=== PATIENT | female | born 1960 | race Hispanic/Latino ===

== ENCOUNTER 2018-11-11 13:57 | Inpatient (IN) | payer MEDICAID ==
[~2018-11-11] VITALS: Ht 157.5 cm; Wt 58.8 kg
[2018-11-11] VITALS (8 sets, daily range): BP systolic 103–135; BP diastolic 59–80
[2018-11-11 14:15] LABS: APPEARANCE,URINE Clear (CLEAR); BILIRUBIN,URINE Small (NEGATIVE); COLOR,URINE Dark Yellow (YELLOW); GLUCOSE, URINE (UA) Negative (NEGATIVE); KETONES,URINE Negative (NEGATIVE); LEUKOCYTE ESTERASE ,URINE Large (NEGATIVE); NITRATE,URINE Negative (NEGATIVE); OCCULT BLOOD,URINE Small (NEGATIVE); PH,URINE 6.5 (5.0-8.0); PROTEIN,URINE >=1000 mg/dL (NEGATIVE)
[2018-11-11 14:23] LABS: AMPHET/METH SCREEN,URINE NEGATIVE (NEGATIVE); BACTERIA,URINE Many /HPF (None Seen); BARBITURATE SCREEN, URINE NEGATIVE (NEGATIVE); BENZODIAZEPINES SCREEN,URINE NEGATIVE (NEGATIVE); CANNABINOID SCREEN,URINE NEGATIVE (NEGATIVE); COCAINE SCREEN,URINE NEGATIVE (NEGATIVE); OPIATE SCREEN,URINE POSITIVE (NEGATIVE); PHENCYCLIDINE SCREEN,URINE NEGATIVE (NEGATIVE)
[2018-11-11 14:25] LABS: WBC,URINE 26-50 /HPF (0-1)
[2018-11-11 14:43] LABS: BASOPHILS % (AUTO) 0.8 % (0.0-5.0); EOSINOPHILS % (AUTO) 0.9 % (0.0-8.0); HEMATOCRIT 27.6 % (36-48); LYMPHOCYTES % (AUTO) 6.2 % (21.0-51.0); MEAN CORPUSCULAR HEMOGLOBIN 29.1 pg (27.0-33.0); MEAN CORPUSCULAR HGB CONC 34.1 g/dL (32.0-36.0); MEAN CORPUSCULAR VOLUME 85.3 fL (79-99); MONOCYTES % (AUTO) 2.4 % (3.0-13.0); NEUTROPHILS % (AUTO) 89.7 % (40.0-77.0); NUCLEATED RED BLOOD CELLS 0.7 % (0.0-0.19); PLATELET COUNT (AUTO) 71 K/uL (130-400); RED BLOOD CELL COUNT(AUTO) 3.24 MIL/uL (4.00-5.50); RED CELL DISTRIBUTION WIDTH 16.4 % (11.0-15.5); WHITE BLOOD COUNT (AUTO) 18.3 K/uL (4.8-10.8)
[2018-11-11 14:57] LABS: ALBUMIN 3.1 g/dL (3.5-5.0); CREATININE 2.8 mg/dL (0.5-1.5); POTASSIUM 4.7 mmol/L (3.5-5.1); TOTAL PROTEIN, SERUM 7.2 g/dL (6.0-8.3)
[2018-11-11] MEDS ORDERED: NALOXONE HCL 0.4 MG/1 ML ML ONE ×2 (15:05→15:50)
[2018-11-11] MEDS ORDERED: CEFTRIAXONE SODIUM 1 GM ONE (15:14)
[2018-11-11 15:41] LABS: ABG BASE EXCESS -9.7 mmol/L (-2.0-3.0); ABG HCO3 16.5 mmol/L (21.0-28.0); ABG OXYGEN SATURATION 84.5 % (95.0-99.0); ABG PCO2 37 mmHg (32-45)
[2018-11-11] MEDS ORDERED: LACTULOSE 20 GM/30 ML UDCUP ONE (15:56)
[2018-11-11] MEDS ORDERED: NALOXONE HCL IVP SCH (18:45)
[2018-11-11] MEDS ORDERED: SODIUM CHLORIDE 0.9% IVP SCH (18:45)
[2018-11-11] MEDS ORDERED: ONDANSETRON HCL 4 MG/2 ML VIAL IVP PRN (19:30)
[2018-11-11] MEDS: SODIUM CHLORIDE 0.9% 1000ML 1,000 ML IV SCH (19:56)
[2018-11-11] MEDS ORDERED: CEFTRIAXONE SODIUM 1 GM IVP SCH (20:57)
[2018-11-11] MEDS: INSULIN HUMULIN R 100 UNIT/ML 3ML SQ SCH (21:00)
[2018-11-11] MEDS ORDERED: ONDA4TAB4 PO (21:19)
[2018-11-11] MEDS ORDERED: EVER5TAB PO (21:19)
[2018-11-11] MEDS ORDERED: GABA-529 PO (21:19)
[2018-11-11] MEDS ORDERED: LOSA50TA64 PO (21:19)
[2018-11-11] MEDS ORDERED: FERR325T29 PO (21:19)
[2018-11-11] MEDS ORDERED: ATOR40TA71 PO (21:19)
[2018-11-11] MEDS ORDERED: FOLI1TAB85 PO (21:19)
[2018-11-11] MEDS ORDERED: FENT1PAT26 TD (21:19)
[2018-11-11] MEDS ORDERED: SOLI5 PO (21:19)
[2018-11-11] MEDS ORDERED: HYDR-4068 PO (21:19)
[2018-11-11] MEDS ORDERED: BISA5TAB12 PO (21:19)
[2018-11-11] MEDS ORDERED: LENV4CAP PO (21:19)
[2018-11-11] MEDS: LACTULOSE 20 GM/30 ML UDCUP PO SCH (21:45)
[2018-11-12] VITALS (16 sets, daily range): BP systolic 89–155; BP diastolic 56–91
[2018-11-12 03:53] LABS: MEAN CORPUSCULAR HEMOGLOBIN 28.6 pg (27.0-33.0); MEAN CORPUSCULAR HGB CONC 34.3 g/dL (32.0-36.0); MEAN CORPUSCULAR VOLUME 83.2 fL (79-99); NUCLEATED RED BLOOD CELLS 0.2 % (0.0-0.19); PLATELET COUNT (AUTO) 66 K/uL (130-400); RED BLOOD CELL COUNT(AUTO) 2.77 MIL/uL (4.00-5.50); RED CELL DISTRIBUTION WIDTH 16.7 % (11.0-15.5); WHITE BLOOD COUNT (AUTO) 6.7 K/uL (4.8-10.8)
[2018-11-12 04:12] LABS: ALBUMIN 2.4 g/dL (3.5-5.0); BILIRUBIN,TOTAL 0.7 mg/dL (0.2-1.0); CREATININE 2.3 mg/dL (0.5-1.5); POTASSIUM 4.6 mmol/L (3.5-5.1); THYROID STIMULATING HORMONE 4.3 uIU/mL (0.36-3.74); TOTAL PROTEIN, SERUM 5.7 g/dL (6.0-8.3); URIC ACID 7.2 mg/dL (2.6-7.2)
[2018-11-12 04:37] LABS: % IRON SATURATION 19.6 % (22-44)
[2018-11-12] MEDS: SODIUM CHLORIDE 0.9% 1000ML 1,000 ML IV SCH ×2 (05:48→14:37)
[2018-11-12] MEDS: INSULIN HUMULIN R 100 UNIT/ML 3ML SQ SCH ×4 (06:54→21:00)
[2018-11-12] MEDS: PANTOPRAZOLE 40 MG/VIAL IVP SCH (09:58)
[2018-11-12] MEDS: LACTULOSE 20 GM/30 ML UDCUP PO SCH ×2 (09:58→13:00)
--- NOTE | 2018-11-12 12:47 | NUR ---
PT IN NO ACUTE DISTRESS- NO SIGNS OF RESPIRATORY DEPRESSION. AIRWAY PATENT AND ON ROOM AIR. COMFORTABLE AT PRESENT TIME. PENDING MD ROUNDS
[2018-11-12] MEDS: CEFTRIAXONE SODIUM 1 GM IVP SCH (14:36)
[2018-11-12] MEDS ORDERED: PHARMACY COMMUNICATION MISC SCH (15:15)
--- NOTE | 2018-11-12 15:15 | NUR ---
DR SANTACRUZ MADE ROUNDS- INFORMED OF LOOSE BMS X3 WITH LACTULOSE AND HE CHANGED DOSE AND GAVE PARAMETERS. WILL BE DOWNGRADED TO MEDICAL FLOOR
[2018-11-12] MEDS: SODIUM CHLORIDE 0.9% 10 ML VIAL IV SCH (15:57)
--- NOTE | 2018-11-12 16:38 | NUR ---
RD Notification Patient with poor PO intake at 25%. Patient also states poor appetite and ate less than half of lunch. Patient states she has been staying hydrated with empty cups visible at bedside. RD recommend nutritional shake at mealtimes, at which patient agreed. Patient reports no GI distress at this time. Patient LBM 11/12/18. Patient monitored labs: Na 127, Cl 95, CO2 19, BUN 39, Cr 2.3, GFR 23, Ca 8.4, Alb 2.4, Glu 127. RD to continue to monitor. Please notify RD as nutritional concerns arise. Thank you. Addendum: 11/12/18 at [address] Amended: Links added.
--- NOTE | 2018-11-12 17:20 | NUR ---
HAND OFF REPORT CALLED TO [facility] 3RD FLOOR. PT TRANSFERRED TO ROOM 302. DAUGHTER NOTIFIED
--- NOTE | 2018-11-12 17:30 | NUR ---
TRANSFER Received patient from second floor in no distress. Port-A-Cath to right chest. Intact-looking. Patient A&O X 3. On bedrest. No needs at the time.
[2018-11-13] MEDS: SODIUM CHLORIDE 0.9% 10 ML VIAL IV SCH ×3 (01:21→15:17)
[2018-11-13 03:26] VITALS: BP 159/95
[2018-11-13 04:58] LABS: HEMATOCRIT 22.9 % (36-48); MEAN CORPUSCULAR HEMOGLOBIN 29.3 pg (27.0-33.0); MEAN CORPUSCULAR VOLUME 83.6 fL (79-99); NUCLEATED RED BLOOD CELLS 0.1 % (0.0-0.19); PLATELET COUNT (AUTO) 56 K/uL (130-400); RED BLOOD CELL COUNT(AUTO) 2.73 MIL/uL (4.00-5.50); RED CELL DISTRIBUTION WIDTH 17.2 % (11.0-15.5)
[2018-11-13 05:13] LABS: BAND NEUTROPHILS % (MANUAL) 8 % (0-2); LYMPHOCYTES % (MANUAL) 12 % (22-44); MAN.DIFF COMMENT-IMPRESSION MANUAL DIFFERENTIAL; MONOCYTES % (MANUAL) 12 % (2-9); PLATELET MORPHOLOGY COMMENT DECREASED; SEGMENTED NEUTROPHILS % 68 % (40-70)
[2018-11-13 05:16] LABS: ALBUMIN 2.3 g/dL (3.5-5.0); BILIRUBIN,TOTAL 0.6 mg/dL (0.2-1.0); CREATININE 1.6 mg/dL (0.5-1.5); POTASSIUM 3.8 mmol/L (3.5-5.1); TOTAL PROTEIN, SERUM 5.7 g/dL (6.0-8.3)
[2018-11-13] MEDS: INSULIN HUMULIN R 100 UNIT/ML 3ML SQ SCH ×4 (06:11→21:00)
[2018-11-13 08:00] VITALS: BP 138/84
[2018-11-13 08:51] LABS: APPEARANCE,URINE Clear (CLEAR); BILIRUBIN,URINE Negative (NEGATIVE); COLOR,URINE Yellow (YELLOW); GLUCOSE, URINE (UA) Negative (NEGATIVE); KETONES,URINE Negative (NEGATIVE); LEUKOCYTE ESTERASE ,URINE Small (NEGATIVE); NITRATE,URINE Negative (NEGATIVE); OCCULT BLOOD,URINE Moderate (NEGATIVE); PH,URINE 5.5 (5.0-8.0); PROTEIN,URINE POS 1+ mg/dL (NEGATIVE)
[2018-11-13] MEDS: LENVATINIB MESYLATE PO SCH (09:00)
[2018-11-13 09:04] LABS: RBC,URINE 0-1 /HPF (0-1)
[2018-11-13 09:05] LABS: BACTERIA,URINE Few /HPF (None Seen); COARSE GRANULAR CASTS,URINE 0-2 /LPF (None Seen)
[2018-11-13] MEDS: LACTULOSE 20 GM/30 ML UDCUP PO SCH ×2 (09:34→22:18)
[2018-11-13] MEDS: EVEROLIMUS 5 MG PO SCH (09:34)
[2018-11-13] MEDS: PANTOPRAZOLE 40 MG/VIAL IVP SCH (09:39)
[2018-11-13] MEDS: LENVATINIB PO SCH (09:39)
[2018-11-13 11:49] VITALS: BP_SYST 159; BP_SYST 162; BP_DIAS 90; BP_DIAS 97
[2018-11-13] MEDS: CEFTRIAXONE SODIUM 1 GM IVP SCH (15:17)
[2018-11-13 16:00] VITALS: BP_SYST 158; BP_SYST 163; BP_DIAS 100; BP_DIAS 104
--- NOTE | 2018-11-13 16:00 | NUR ---
CM SENT REFERRAL TO WEB DESIGNER DEVELOPER REQUESTED BY PT . ALSO ATTEMPTED TO CALL DAUGHTER REQUESTED BY PT, BUT UNABLE TO REACH HER. WILL DEFER TO CM IN AM Addendum: 11/13/18 at 1652 by SINGH SALGADO RN CM Amended: Links added.
--- NOTE | 2018-11-13 16:15 | NUR ---
CM INITIAL CM met w pt, alone, alert, states lives alone, daughter cornell to supply transport- cornell identified as daughter in law on face sheet -will update. pt uses a cane, no other dme, states has 9 year hx stage 4 renal cancer, now on po meds; uses opiates daily, had accidental overdose, reason for admission. discussed opiates and affect on pts outlook, increased possible depression, pt states daughter wants to talk to psychotherapist social worker to see what is available for her. Pt states that overdose was accidental but does not deny low mood or depression. Will enter SW consult. Addendum: 11/13/18 at 1622 by SINGH SALGADO RN CM Amended: Links added.
[2018-11-13] MEDS ORDERED: ACETAMINOPHEN 325 MG TAB PO PRN (17:30)
[2018-11-13] MEDS ORDERED: TRAMADOL HCL 50 MG TABLET PO PRN (17:30)
[2018-11-13 19:43] VITALS: BP 152/97
[2018-11-13 23:40] VITALS: BP 170/101
[2018-11-14] MEDS: SODIUM CHLORIDE 0.9% 10 ML VIAL IV SCH ×3 (00:05→14:48)
--- NOTE | 2018-11-14 00:07 | NUR ---
NN CALL PLACED TO DR Ita SANTACRUZ TO INFORM OF ELEVATED BP OF 170/101. PATIENT DENIES ANY PAIN OR DISCOMFORT AT PRESENT. NO PRN BP MED AND HOME BP MED HAS NOT BEEN RESUMED. NEW ORDER GIVEN FOR AMLODIPINE 5MG PO DAILY AND NOTED.
[2018-11-14] MEDS: AMLODIPINE BESYLATE 5 MG TAB PO SCH ×2 (01:46→09:00)
[2018-11-14 02:50] VITALS: BP 160/84
[2018-11-14 04:41] LABS: HEMATOCRIT 25.5 % (36-48); MEAN CORPUSCULAR HEMOGLOBIN 28.9 pg (27.0-33.0); MEAN CORPUSCULAR HGB CONC 34.7 g/dL (32.0-36.0); MEAN CORPUSCULAR VOLUME 83.2 fL (79-99); NUCLEATED RED BLOOD CELLS 0.1 % (0.0-0.19); PLATELET COUNT (AUTO) 59 K/uL (130-400); RED BLOOD CELL COUNT(AUTO) 3.06 MIL/uL (4.00-5.50); RED CELL DISTRIBUTION WIDTH 17.2 % (11.0-15.5); WHITE BLOOD COUNT (AUTO) 3.7 K/uL (4.8-10.8)
[2018-11-14 05:00] LABS: ALBUMIN 2.4 g/dL (3.5-5.0); BILIRUBIN,TOTAL 0.8 mg/dL (0.2-1.0); CREATININE 1.1 mg/dL (0.5-1.5); POTASSIUM 3.7 mmol/L (3.5-5.1); TOTAL PROTEIN, SERUM 6.2 g/dL (6.0-8.3)
[2018-11-14 07:00] VITALS: BP 143/98
[2018-11-14 07:27] LABS: HEPATITIS A ANTIBODY IGM Negative (Negative); HEPATITIS B CORE IGM Negative (Negative); HEPATITIS Bs ANTIGEN SCREEN P Negative (Negative)
[2018-11-14] MEDS: INSULIN HUMULIN R 100 UNIT/ML 3ML SQ SCH ×4 (07:30→20:20)
[2018-11-14] MEDS: EVEROLIMUS 5 MG PO SCH (08:57)
[2018-11-14] MEDS: LENVATINIB PO SCH (08:57)
[2018-11-14] MEDS: LENVATINIB MESYLATE PO SCH (08:58)
[2018-11-14] MEDS: LACTULOSE 20 GM/30 ML UDCUP PO SCH ×2 (09:00→20:37)
[2018-11-14] MEDS: PANTOPRAZOLE 40 MG/VIAL IVP SCH (09:00)
--- NOTE | 2018-11-14 09:00 | NUR ---
cm note received call from cornell kilgore daughter, provided her phone # during day [phone] if needed, states requests assistance with dme. walker, and bsc, per PT recommending front wheeled walker. pt in agreement. daughter also asked for adult briefs, informed would have to follwoup with her PCP at [facility] familiar for that. verbalize understanding. call made to dr shanks and in agreement for any equipment for pt. will sign form states to leave flagged int chart. referral made to to [facility] d[facility]. spoke to fadia and [facility] will start the process. Title Xix placed in chart for md signature. Addendum: 11/14/18 at 1852 by ERIBERTO KING CM dc plan per daughter cornell, states she has made arrangements for pt to go home with a relative that will be with her 11/02. at time of dc.
[2018-11-14 11:00] VITALS: BP 151/88
--- NOTE | 2018-11-14 13:43 | NUR ---
ACCIDENTAL OD Sw met with pt who states she did not ask to speak to me. Pt called her daughter Rani at work and Sw spoke to her. Daughter asking for assistance to speed up provider services approval. Sw explained that we do not assist with getting pt provider services, because they must be out of the hospital. Daughter has already been working with [facility] and must wait for process to be completed and approval. Daughter requesting assistance with getting pt walker. Sw referred daughter to pt's PCP. Sw spoke to pt who denies intentional OD, states that she made a mistake and put on a fentanyl patch and took a hydrocodone and she had a reaction. Pt states she is taking medications for stage 4 cancer and her pain seems to be controlled with current pain medication. pt denies need for substance abuse recourses, pt reports plan is [place] in [place] friend [place] so she won't be alone. Pt denies need for assistance at this time
--- NOTE | 2018-11-14 13:51 | NUR ---
Notified Dr. Ray office of consult.
[2018-11-14] MEDS: CEFTRIAXONE SODIUM 1 GM IVP SCH (14:48)
[2018-11-14 16:00] VITALS: BP 147/91
[2018-11-14] MEDS ORDERED: KETOROLAC TROMETHAMINE 15MG/ML IM PRN (18:15)
[2018-11-14] MEDS ORDERED: DEXAMETHASONE 10MG/ML 1ML VIAL 10 MG in SODIUM CHLORIDE 0.9% 50 ML IV PRN (18:15)
[2018-11-14] MEDS ORDERED: PHARMACY COMMUNICATION MISC SCH (18:15)
--- NOTE | 2018-11-14 18:20 | NUR ---
Dr. Lopez in to see pt.
[2018-11-14] MEDS ORDERED: COMPOUND PO MISCELLANEOUS 1 EACH MISC MISC PRN (19:15)
[2018-11-14 20:00] VITALS: BP 154/95
[2018-11-14] MEDS: GI COCKTAIL PO SCH ×3 (20:42)
[2018-11-15] MEDS: SODIUM CHLORIDE 0.9% 10 ML VIAL IV SCH ×3 (00:01→15:27)
[2018-11-15 00:05] VITALS: BP 140/86
[2018-11-15] MEDS: GI COCKTAIL PO SCH ×9 (02:52→14:13)
[2018-11-15 04:00] VITALS: BP 156/98
[2018-11-15 05:11] LABS: HEMATOCRIT 26.9 % (36-48); MEAN CORPUSCULAR HEMOGLOBIN 29.5 pg (27.0-33.0); MEAN CORPUSCULAR HGB CONC 35.5 g/dL (32.0-36.0); MEAN CORPUSCULAR VOLUME 83.1 fL (79-99); NUCLEATED RED BLOOD CELLS 0.2 % (0.0-0.19); PLATELET COUNT (AUTO) 30 K/uL (130-400); RED BLOOD CELL COUNT(AUTO) 3.24 MIL/uL (4.00-5.50); RED CELL DISTRIBUTION WIDTH 17.5 % (11.0-15.5)
[2018-11-15 05:26] LABS: CREATININE 0.8 mg/dL (0.5-1.5); POTASSIUM 3.9 mmol/L (3.5-5.1)
[2018-11-15] MEDS: INSULIN HUMULIN R 100 UNIT/ML 3ML SQ SCH ×2 (05:46→11:30)
[2018-11-15 05:57] LABS: BAND NEUTROPHILS % (MANUAL) 1 % (0-2); EOSINOPHILS % (MANUAL) 2 % (1-6); LYMPHOCYTES % (MANUAL) 24 % (22-44); MONOCYTES % (MANUAL) 6 % (2-9); SEGMENTED NEUTROPHILS % 67 % (40-70)
[2018-11-15 05:58] LABS: MAN.DIFF COMMENT-IMPRESSION MANUAL DIFFERENTIAL
[2018-11-15 05:59] LABS: PLATELET MORPHOLOGY COMMENT MARKED DECREASE
[2018-11-15 07:00] VITALS: BP 157/80
[2018-11-15] MEDS: PANTOPRAZOLE 40 MG/VIAL IVP SCH (09:19)
[2018-11-15] MEDS: AMLODIPINE BESYLATE 5 MG TAB PO SCH (09:21)
[2018-11-15] MEDS: LACTULOSE 20 GM/30 ML UDCUP PO SCH (09:21)
[2018-11-15 11:00] VITALS: BP 115/76
[2018-11-15] MEDS ORDERED: AMLO5TAB4 PO (14:35)
[2018-11-15] MEDS ORDERED: LACT PO (14:35)
[2018-11-15] MEDS: CEFTRIAXONE SODIUM 1 GM IVP SCH (15:27)
[2018-11-15] MEDS ORDERED: HEPARIN SODIUM/PF 100UNIT/ML 5ML SYRINGE IV SCH (15:45)
[2018-11-15 16:00] VITALS: BP 136/92
== END 2018-11-15 16:33 | disposition home health service (06) | DRG 720 ==
LOC: EDH 13:57 → EDHIP 13:58 → 2CH 19:05 → 3AH 11-12 17:15
PROVIDERS: ADMIT Internal Medicine Nephrology; ATTEND Internal Medicine Nephrology
DX: A41.9 Sepsis, unspecified organism (principal); N17.9 Acute kidney failure, unspecified; D61.818 Other pancytopenia; E87.2 Acidosis; D69.6 Thrombocytopenia, unspecified; E11.21 Type 2 diabetes mellitus with diabetic nephropathy; E11.51 Type 2 diabetes mellitus with diabetic peripheral angiopathy without gangrene; E87.1 Hypo-osmolality and hyponatremia; K72.90 Hepatic failure, unspecified without coma; N39.0 Urinary tract infection, site not specified; K74.60 Unspecified cirrhosis of liver; D64.9 Anemia, unspecified; E78.5 Hyperlipidemia, unspecified; I10 Essential (primary) hypertension; E87.6 Hypokalemia; K12.1 Other forms of stomatitis; Z85.528 Personal history of other malignant neoplasm of kidney; Z87.442 Personal history of urinary calculi; Z90.5 Acquired absence of kidney; Z90.710 Acquired absence of both cervix and uterus; Z91.19 Patient's noncompliance with other medical treatment and regimen; Z92.3 Personal history of irradiation; Z51.11 Encounter for antineoplastic chemotherapy
CPT/HCPCS: 36415; 36600; 70450; 72100; 73502; 76700; 80048; 80053; 80074; 80305; 81001; 82140; 82728; 82803; 82948; 83540; 83550; 83935; 84300; 84443; 84484; 84550; 85025; 85027; 87040; 87077; 87088; 87186; 93005; 97039; 99291; C9113; G0378; J0696; J1642; J2310; J7030